=== PATIENT | male | born 1985 | race African-American/Black ===

== ENCOUNTER 2016-09-23 10:29 | Emergency (ER) | payer SELFPAY ==
[~2016-09-23] VITALS: Ht 185.4 cm; Wt 83.9 kg
[~2016-09-23 10:29] MED LIST: HYDR-965 PO
--- NOTE | 2016-09-23 10:59 | PHYS DOC ---
Past Medical History Past Medical History: No Pertinent History Past Surgical History: Other Additional Past Surgical Histo: right hand tendon surgery Additional Information: 5-6 cigarettes daily Alcohol Use: Occasionally Drug Use: Marijuana Adult General Chief Complaint Chief Complaint: FLANK PAIN HPI HPI Patient is a 31 year old male with no significant medical history who presents today with tenzin hematuria and right flank pain moderate in nature that began this morning. Patient denies any previous history of kidney stones. Denies any urgency frequency or dysuria. Denies any nausea vomiting. Review of Systems Review of Systems Constitutional: Denies fever or chills [] Eyes: Denies change in visual acuity, redness, or eye pain [] HENT: Denies nasal congestion or sore throat [] Respiratory: Denies cough or shortness of breath [] Cardiovascular: No additional information not addressed in HPI [] GI: Denies abdominal pain, nausea, vomiting, bloody stools or diarrhea [] : Right flank pain, hematuria Musculoskeletal: Denies back pain or joint pain [] Integument: Denies rash or skin lesions [] Neurologic: Denies headache, focal weakness or sensory changes [] Endocrine: Denies polyuria or polydipsia [] Current Medications Current Medications Current Medications Medications (Trade) Dose Ordered Sig/Ash Start Time Stop Time Status Last Admin Dose Admin Hydromorphone HCl (Dilaudid) 1 mg 1X ONCE 09/23/16 13:30 09/23/16 13:33 DC Ketorolac Tromethamine (Toradol) 30 mg 1X ONCE 09/23/16 11:00 09/23/16 11:01 DC 09/23/16 11:13 30 MG Morphine Sulfate 5 mg 1X ONCE 09/23/16 11:00 09/23/16 11:01 DC 09/23/16 11:16 5 MG Ondansetron HCl (Zofran) 4 mg 1X ONCE 09/23/16 11:00 09/23/16 11:01 DC 09/23/16 11:11 4 MG Tamsulosin HCl (Flomax) 0.4 mg 1X ONCE 09/23/16 11:00 09/23/16 11:01 DC 09/23/16 11:16 0.4 MG Allergies Allergies Allergies Coded Allergies Type Severity Reaction Last Updated Verified No Known Drug Allergies 09/21/15 No Physical Exam Physical Exam Constitutional: Well developed, well nourished, no acute distress, non-toxic appearance. [] HENT: Normocephalic, atraumatic, bilateral external ears normal, oropharynx moist, no oral exudates, nose normal. [] Eyes: PERRLA, EOMI, conjunctiva normal, no discharge. [] Neck: Normal range of motion, no tenderness, supple, no stridor. [] Cardiovascular:Heart rate regular rhythm, no murmur [] Lungs & Thorax: Bilateral breath sounds clear to auscultation [] Abdomen: Bowel sounds normal, soft, no tenderness, no masses, no pulsatile masses. [] Skin: Warm, dry, no erythema, no rash. [] Back: No tenderness, mild right CVA tenderness. [] Extremities: No tenderness, no cyanosis, no clubbing, ROM intact, no edema. [] Neurologic: Alert and oriented X 3, normal motor function, normal sensory function, no focal deficits noted. [] Psychologic: Affect normal, judgement normal, mood normal. [] Current Patient Data Vital Signs Vital Signs Date Time Temp Pulse Resp B/P Pulse Ox O2 Delivery O2 Flow Rate FiO2 09/23/16 11:16 16 100 Room Air 09/23/16 10:38 96.3 50 128/80 96.3 Lab Values Laboratory Tests Test 09/23/16 10:35 09/23/16 10:55 Urine Collection Type Void Urine Color Red Urine Clarity Cloudy Urine pH 6.5 Urine Specific [place] 1.025 Urine Protein 100mg/dL (NEG-TRACE) Urine Glucose (UA) Negativemg/dL (NEG) Urine Ketones (Stick) mg/dL (NEG) Urine Blood Large (NEG) Urine Nitrite Negative (NEG) Urine Bilirubin (NEG) Urine Urobilinogen Dipstick 1.0mg/dL (0.2 mg/dL) Urine Leukocyte Esterase (NEG) Urine RBC Tntc/HPF (0-2) Urine WBC 1-4/HPF (0-4) Urine Squamous Epithelial Cells None/LPF Urine Bacteria Few/HPF (0-FEW) Urine Mucus Slight/LPF White Blood Count 7.9x10^3/uL (4.0-11.0) Red Blood Count 4.97x10^6/uL (4.30-5.70) Hemoglobin 15.0g/dL (13.0-17.5) Hematocrit 44.4% (39.0-53.0) Mean Corpuscular Volume 89fL (79-100) Mean Corpuscular Hemoglobin 30pg (25-35) Mean Corpuscular Hemoglobin Concent 34g/dL (31-37) Red Cell Distribution Width 13.7% (11.5-14.5) Platelet Count 180x10^3/uL (140-400) Neutrophils (%) (Auto) 65% (31-73) Lymphocytes (%) (Auto) 24% (24-48) Monocytes (%) (Auto) 7% (0-9) Eosinophils (%) (Auto) 2% (0-3) Basophils (%) (Auto) 1% (0-3) Neutrophils # (Auto) 5.1x10^3uL (1.8-7.7) Lymphocytes # (Auto) 1.9x10^3/uL (1.0-4.8) Monocytes # (Auto) 0.6x10^3/uL (0.0-1.1) Eosinophils # (Auto) 0.2x10^3/uL (0.0-0.7) Basophils # (Auto) 0.1x10^3/uL (0.0-0.2) Sodium Level 142mmol/L (136-145) Potassium Level 3.8mmol/L (3.5-5.1) Chloride Level 105mmol/L (98-107) Carbon Dioxide Level 32mmol/L (21-32) Anion Gap 5 (6-14) L Blood Urea Nitrogen 11mg/dL (8-26) Creatinine 1.3mg/dL (0.7-1.3) Estimated GFR (Cockcroft-Gault) 79.0 BUN/Creatinine Ratio 8 (6-20) Glucose Level 91mg/dL (70-99) Calcium Level 8.6mg/dL (8.5-10.1) Total Bilirubin 0.3mg/dL (0.2-1.0) Aspartate Amino Transferase (AST) 22U/L (15-37) Alanine Aminotransferase (ALT) 17U/L (16-63) Alkaline Phosphatase 83U/L (46-116) Total Protein 7.7g/dL (6.4-8.2) Albumin 3.8g/dL (3.4-5.0) Albumin/Globulin Ratio 1.0 (1.0-1.7) Lipase 241U/L (73-393) Laboratory Tests 09/23/16 10:55 Laboratory Tests 09/23/16 10:55 EKG EKG [] Radiology/Procedures Radiology/Procedures [] Course & Med Decision Making Course & Med Decision Making Pertinent Labs and Imaging studies reviewed. (See chart for details) This is a 31-year-old male patient who presents today for right flank pain and hematuria. No history of kidney stones. His urine was completely bloody on arrival to the ED. Urine analysis could not detect infection partly because of the color. CT of the abdomen and pelvic was noted for calcification on the distal right ureter suspicious for kidney stone. He also has right hydronephrosis. His pain is well managed in the ED. He was discharged with oxycodone Cipro promethazine and Flomax. Provided the urologist for follow-up in one week. Discharged in stable condition. Dragon Disclaimer Dragon Disclaimer This electronic medical record was generated, in whole or in part, using a voice recognition dictation system. Departure Departure Impression: Primary Impression: Kidney stone on right side Additional Impression: Hematuria Disposition: HOME, SELF-CARE Condition: STABLE Referrals: NO PCP (PCP) TOMMY TRISTAN DO Follow up with him in the course of this week Patient Instructions: Kidney Stones Additional Instructions: You seen for flank pain. Your CT of the abdomen and pelvic is suspicious for kidney stone. We put you on pain medicines. Follow-up with the provided urologist in the course of this week. Come back to the ED if symptoms worsen. Scripts Ciprofloxacin Hcl (Cipro)500 Mg Tablet1 Tab PO BID #14 TAB Prov:MARTHA STALLWORTH DATA COMMUNICATIONS TECHNICIAN 09/23/16 Oxycodone/Apap 5-325 (Percocet 5-325 Mg Tablet)1 Each Tablet1-2 Tab PO Q4-6HRS # 20 TAB Prov:MUTUNGAMARTHA DATA COMMUNICATIONS TECHNICIAN 09/23/16 Promethazine Hcl 25 Mg Tablet1 Tab PO PRN Q6HRS #20 TAB Prov:MUTUNGA,MARTHA DATA COMMUNICATIONS TECHNICIAN 09/23/16 Tamsulosin Hcl (Flomax)0.4 Mg Cap.er.24h0.4 Mg PO DAILY #6 TAB Prov:MUTFELISAMARTHA DATA COMMUNICATIONS TECHNICIAN 09/23/16 Problem Qualifiers MUTUNGA,MARTHA DATA COMMUNICATIONS TECHNICIAN Sep 23, 2016 10:59
[2016-09-23] MEDS ORDERED: TAMSULOSIN 0.4 MG CAP.ER.24H. PO ONE (11:00)
[2016-09-23] MEDS ORDERED: ONDANSETRON PF 4 MG/2 ML VIAL. IV ONE (11:00)
[2016-09-23] MEDS ORDERED: KETOROLAC TROMETHAMINE 30 MG/ML INJ. IV ONE (11:00)
[2016-09-23] MEDS ORDERED: MORPHINE SULFATE 10 MG/ML VIAL. IV ONE (11:00)
[2016-09-23 11:12] LABS: BASO # 0.1 x10^3/uL (0.0-0.2); BASO % 1 % (0-3); EOS % 2 % (0-3); HEMATOCRIT 44.4 % (39.0-53.0); LYMPH # 1.9 x10^3/uL (1.0-4.8); LYMPH % 24 % (24-48); MEAN CORPUSCULAR HEMOGLOBIN 30 pg (25-35); MEAN CORPUSCULAR HGB CONC 34 g/dL (31-37); MEAN CORPUSCULAR VOLUME 89 fL (79-100); MONO % 7 % (0-9); NEUT % 65 % (31-73); PLATELET COUNT 180 x10^3/uL (140-400); RED BLOOD COUNT 4.97 x10^6/uL (4.30-5.70); RED CELL DISTRIBUTION WIDTH 13.7 % (11.5-14.5); WHITE BLOOD COUNT 7.9 x10^3/uL (4.0-11.0)
[2016-09-23 11:24] LABS: CALCIUM 8.6 mg/dL (8.5-10.1); CREATININE 1.3 mg/dL (0.7-1.3); POTASSIUM 3.8 mmol/L (3.5-5.1)
[2016-09-23 11:26] LABS: ALBUMIN 3.8 g/dL (3.4-5.0); TOTAL BILIRUBIN 0.3 mg/dL (0.2-1.0); TOTAL PROTEIN 7.7 g/dL (6.4-8.2)
[2016-09-23 11:58] LABS: GLUCOSE,URINE NEGATIVE (NEG); PH,URINE 6.5; PROTEIN,URINE 100 mg/dL (NEG-TRACE)
[2016-09-23 11:59] LABS: BACTERIA,URINE FEW /HPF (0-FEW); NITRITE,URINE NEGATIVE (NEG); RBC,URINE TNTC /HPF (0-2)
--- NOTE | 2016-09-23 12:05 | RAD ---
CT abdomen and pelvis without contrast History: Hematuria and right flank pain. Comparison: None. Technique: Helical CT of the abdomen and pelvis was performed without intravenous or oral contrast. Axial, sagittal, and coronal reconstructions were obtained. One or more of the following individualized dose reduction techniques were utilized for the study: Automated exposure control Adjustment of mA and/or kV according to patient's size Use of iterative reconstruction technique. Findings: Evaluation of the solid organs is limited by lack of intravenous contrast. Evaluation of enteric structures may be limited by lack of oral contrast. Evaluation is also limited secondary to patient's thin body habitus with decreased amount of intra-abdominal and intrapelvic fat stores. Liver, spleen, pancreas, gallbladder, and bilateral adrenal glands are unremarkable. There is no evidence of bowel obstruction. No free air or convincing free fluid is identified in the abdomen or pelvis. Appendix is not confidently identified. Urinary bladder is unremarkable. Evaluation of the ureters is limited secondary to the patient's thin body habitus. There is evidence of mild right hydronephrosis. There is a calcification involving the right side of the abdomen which measures 2 mm, favored to represent proximal right ureteral stone. There are 2 calcifications involving the right hemipelvis which given their location are more favored to represent phleboliths. Impression: Limited examination. There is a calcification in the right side of the abdomen measuring 2 mm which is favored to represent proximal right ureteral stone. Mild right hydronephrosis.
[2016-09-23] MEDS ORDERED: HYDROmorphone 2 MG/ML VIAL IV ONE (13:30)
[2016-09-23] MEDS ORDERED: PROM25TA10 PO (13:43)
[2016-09-23] MEDS ORDERED: OXYC-323 PO (13:43)
[2016-09-23] MEDS ORDERED: TAMS0.4C97 PO (13:43)
[2016-09-23] MEDS ORDERED: CIPR500T94 PO (13:47)
[2016-09-23 14:00] VITALS: BP 116/78
== END 2016-09-23 14:09 | disposition home or self-care (01) ==
LOC: ER 10:29
DX: N20.0 Calculus of kidney (principal); R31.9 Hematuria, unspecified; F12.10 Cannabis abuse, uncomplicated; F17.210 Nicotine dependence, cigarettes, uncomplicated
CPT/HCPCS: 36415; 74176; 80053; 81001; 83690; 85027; 96374; 96375; 99285; J1170; J1885; J2270; J2405